=== PATIENT | male | born 1955 | race Caucasian/White ===

== ENCOUNTER 2022-01-26 11:54 | Outpatient (CLI) | payer MEDICARE, OTHER ==
[2022-01-26 23:43] LABS: SARS-CoV-2 PCR by NAA Not Detected (NotDetected)
== END 2022-01-26 11:55 | disposition home or self-care (01) ==
LOC: CSHLAB 11:54
PROVIDERS: ATTEND Family Medicine
DX: Z20.822 Contact with and (suspected) exposure to COVID-19 (principal); M54.2 Cervicalgia
CPT/HCPCS: U0003; U0005

== ENCOUNTER 2022-02-23 11:50 | Outpatient (CLI) | payer MEDICARE, OTHER | END 2022-02-23 11:51 | disposition home or self-care (01) | LOC: CSHRAD 11:50 | PROVIDERS: ATTEND Neurological Surgery | DX: M54.2 Cervicalgia (principal); M47.812 Spondylosis without myelopathy or radiculopathy, cervical region; Z98.890 Other specified postprocedural states | CPT/HCPCS: 72050 ==